=== PATIENT | male | born 1965 | race Caucasian/White ===

== ENCOUNTER 2024-03-01 11:41 | Emergency (ER) | payer OTHER ==
[2024-03-01] MEDS ORDERED: CYCLOBENZAPRINE HCL 5 MG TABLET ONE (11:57)
[2024-03-01] MEDS: CYCLOBENZAPRINE HCL 10 MG TABLET (FP) PO ONE (12:00)
[2024-03-01 12:04] VITALS: BP 156/87; PULSE 78; RESP 16; TEMP 97.5; BMI 26.4
[2024-03-01] MEDS ORDERED: KETOROLAC TROMETHAMINE 30 MG/1 ML VIAL ONE (12:56)
[2024-03-01] MEDS: KETOROLAC TROMETHAMINE 30 MG/1 ML VIAL IM ONE (13:00)
[2024-03-01] MEDS ORDERED: DEXAMETHASONE SOD PHOSPHATE 4 MG/1 ML VIAL ONE (17:09)
[2024-03-01] MEDS: DEXAMETHASONE SOD PHOSPHATE 4 MG/1 ML VIAL IVPUSH ONE (17:15)
== END 2024-03-01 17:45 | disposition home or self-care (01) ==
LOC: FER 11:41
PROC: 3E033GC Introduction of Other Therapeutic Substance into Peripheral Vein, Percutaneous Approach (ICD-10-PCS; principal; 2024-03-01)
PROC: 3E0333Z Introduction of Anti-inflammatory into Peripheral Vein, Percutaneous Approach (ICD-10-PCS; 2024-03-01)
DX: M54.42 Lumbago with sciatica, left side (principal); M51.26 Other intervertebral disc displacement, lumbar region
CPT/HCPCS: 72100-TC-FY; 72131-TC; 99284-25